=== PATIENT | male | born 1970 | race Caucasian/White ===

== ENCOUNTER 2016-08-10 20:31 | Emergency (ER) | payer OTHER ==
[~2016-08-10] VITALS: Ht 180.3 cm; Wt 80.3 kg
[~2016-08-10 20:31] MED LIST: ACYCLOVIR800 MG PO; BACTRIM DS 8001 TA1 PO; CATAFLAM50 MG PO; HYDROCODONE BIT1 T11 PO; NKHM; TAMIFLU 75MG CA75 MG PO; VICODIN 5/500 505 MG PO; ZOFRAN4 MG PO
[2016-08-17] MEDS ORDERED: ZOFRAN ODT4 MG SL (14:19)
[2016-08-17] MEDS ORDERED: PERCOCET 325 MG1 TA2 PO (14:19)
== END 2016-08-10 22:48 | disposition home or self-care (01) ==
LOC: ED 20:31
DX: S39.011A Strain of muscle, fascia and tendon of abdomen, initial encounter (principal); F17.200 Nicotine dependence, unspecified, uncomplicated; Z88.8 Allergy status to other drugs, medicaments and biological substances; W19.XXXA Unspecified fall, initial encounter; Y93.89 Activity, other specified; Y92.9 Unspecified place or not applicable; Y99.9 Unspecified external cause status

== ENCOUNTER 2019-10-30 20:29 | Emergency (ER) | payer OTHER ==
[~2019-10-30] VITALS: Ht 180.3 cm; Wt 81.6 kg
[~2019-10-30 20:29] MED LIST changes: +PERCOCET 325 MG1 TA2 PO; +ZOFRAN ODT4 MG SL
[2019-10-30] MEDS ORDERED: CEPHALEXIN500 M1 PO (21:34)
== END 2019-10-30 21:50 | disposition home or self-care (01) ==
LOC: ED 20:29
DX: J06.9 Acute upper respiratory infection, unspecified (principal); J02.9 Acute pharyngitis, unspecified; R05 Cough; F17.200 Nicotine dependence, unspecified, uncomplicated; Z88.8 Allergy status to other drugs, medicaments and biological substances

== ENCOUNTER → 2020-02-14 | Outpatient (CLI) | payer OTHER ==
[~2020-02-14] MED LIST changes: +CEPHALEXIN500 M1 PO
== END | disposition home or self-care (01) ==
LOC: COVID19 04:44
DX: Z20.828 Contact with and (suspected) exposure to other viral communicable diseases (principal)

== ENCOUNTER → 2020-05-09 | Outpatient (CLI) | payer OTHER | END | disposition home or self-care (01) | LOC: COVID19 00:18 | PROVIDERS: ATTEND Psychiatry & Neurology Neurology | DX: Z20.828 Contact with and (suspected) exposure to other viral communicable diseases (principal); R56.9 Unspecified convulsions ==

== ENCOUNTER 2021-08-22 20:48 | Emergency (ER) | payer OTHER ==
[~2021-08-22] VITALS: Wt 81.6 kg
== END 2021-08-22 22:21 | disposition home or self-care (01) ==
LOC: ED 20:48
DX: R09.81 Nasal congestion (principal); Z20.822 Contact with and (suspected) exposure to COVID-19; R43.8 Other disturbances of smell and taste; F17.200 Nicotine dependence, unspecified, uncomplicated; Z88.8 Allergy status to other drugs, medicaments and biological substances; Z98.890 Other specified postprocedural states

== ENCOUNTER 2022-06-04 21:29 | Emergency (ER) | payer OTHER ==
[~2022-06-04] VITALS: Ht 177.8 cm; Wt 83.9 kg
[2022-06-04] MEDS ORDERED: PROVENTIL HFA6.7 GM INH (22:58)
[2022-06-04] MEDS ORDERED: IBUPROFEN600 MG PO (22:58)
== END 2022-06-04 23:06 | disposition home or self-care (01) ==
LOC: ED 21:29
DX: U07.1 COVID-19 (principal); Z87.891 Personal history of nicotine dependence; Z88.8 Allergy status to other drugs, medicaments and biological substances

== ENCOUNTER 2022-12-27 12:21 | Emergency (ER) | payer OTHER ==
[~2022-12-27] VITALS: Ht 180.3 cm; Wt 81.6 kg
[~2022-12-27 12:21] MED LIST changes: +IBUPROFEN600 MG PO; +PROVENTIL HFA6.7 GM INH
[2022-12-27 13:12] LABS: BASO # 0.1 10*3/uL (0.0-0.1); BASO % 1.1 % (0.0-1.0); HEMATOCRIT 43.6 % (42.0-52.0); LYMPH # 2.2 10*3/uL (1.3-4.4); LYMPH % 30.8 % (27.0-41.0); MEAN CELL VOLUME 92.8 fl (80.0-94.0); MEAN CORPUSCULAR HGB 31.5 pg (27.0-31.0); MEAN CORPUSCULAR HGB CONC 33.9 g/dl (33.0-37.0); MEAN PLATELET VOLUME 11.4 fl (9.6-12.3); MONO # 0.6 10*3/uL (0.1-1.0); MONO % 7.8 % (3.0-9.0); NEUT # 4.3 10*3/uL (2.3-7.9); NEUT % 59.9 % (47.0-73.0); PLATELET COUNT AUTOMATED 149 10*3/uL (130-400); RED CELL DISTRI WIDTH 12.8 % (0-14.5); WHITE BLOOD COUNT 7.1 10*3/uL (4.8-10.8)
[2022-12-27 13:33] LABS: BILIRUBIN Negative (Negative); BLOOD Negative (Negative); CLARITY Clear (Clear); COLOR Yellow (Yellow); GLUCOSE Negative (Negative); KETONE Negative (Negative); LEUKO ESTERASE 2+ (Negative); NITRITE Negative (Negative)
[2022-12-27 13:43] LABS: ALKALINE PHOSPHATASE 50 U/L (46-116); BUN 13 mg/dl (9-23); CHLORIDE 109 mmol/L (98-107); POTASSIUM 4.3 mmol/L (3.4-5.1); SGPT/ALT 35 U/L (10-49); TOTAL PROTEIN 7.6 gm/dL (6.0-8.0)
[2022-12-27 13:56] LABS: BACTERIA 2+; MUCOUS TRACE; WBC TNTC wbc/hpf (0-5)
[2022-12-27] MEDS ORDERED: LEVOFLOXACIN500 MG PO (14:13)
== END 2022-12-27 14:36 | disposition home or self-care (01) ==
LOC: ED 12:21
PROVIDERS: Emergency Medicine; Internal Medicine
DX: N39.0 Urinary tract infection, site not specified (principal); Z88.8 Allergy status to other drugs, medicaments and biological substances; M79.7 Fibromyalgia; Z98.890 Other specified postprocedural states; Z86.718 Personal history of other venous thrombosis and embolism; F17.200 Nicotine dependence, unspecified, uncomplicated

== ENCOUNTER 2023-07-05 15:09 | Emergency (ER) | payer OTHER ==
[~2023-07-05] VITALS: Ht 180.3 cm; Wt 85.3 kg
[~2023-07-05 15:09] MED LIST changes: +LEVOFLOXACIN500 MG PO
[2023-07-05] MEDS ORDERED: ONDANSETRON4 MG SL (16:24)
== END 2023-07-05 16:31 | disposition home or self-care (01) ==
LOC: ED 15:09
DX: B34.9 Viral infection, unspecified (principal); R11.10 Vomiting, unspecified; R19.7 Diarrhea, unspecified; M79.7 Fibromyalgia; R51.9 Headache, unspecified; R11.2 Nausea with vomiting, unspecified; Z88.8 Allergy status to other drugs, medicaments and biological substances; Z98.890 Other specified postprocedural states; F17.200 Nicotine dependence, unspecified, uncomplicated; Z20.822 Contact with and (suspected) exposure to COVID-19

== ENCOUNTER 2024-02-15 14:33 | Emergency (ER) | payer OTHER ==
[~2024-02-15] VITALS: Ht 180.3 cm; Wt 83.9 kg
[~2024-02-15 14:33] MED LIST changes: +ONDANSETRON4 MG SL
[2024-02-15 15:02] LABS: BILIRUBIN Negative (Negative); CLARITY Clear (Clear); COLOR Yellow (Yellow); GLUCOSE Negative (Negative); KETONE Negative (Negative); LEUKO ESTERASE Negative (Negative); NITRITE Negative (Negative); SPECIFIC GRAVITY <= 1.005 (1.001-1.030); UROBILINOGEN 0.2 E.U./dl (0.0-1.0)
[2024-02-15 15:15] LABS: BLOOD 2+ (Negative); MUCOUS 1+; RBC 16-20 rbc/hpf (0-2); WBC 0-2 wbc/hpf (0-5)
== END 2024-02-15 15:30 | disposition home or self-care (01) ==
LOC: ED
PROVIDERS: Physician Assistant Medical
DX: R31.9 Hematuria, unspecified (principal); F17.200 Nicotine dependence, unspecified, uncomplicated; Z88.8 Allergy status to other drugs, medicaments and biological substances; Z79.899 Other long term (current) drug therapy; Z79.2 Long term (current) use of antibiotics; Z98.890 Other specified postprocedural states; Z87.442 Personal history of urinary calculi